=== PATIENT | male | born 1990 | race Caucasian/White ===

== ENCOUNTER 2016-12-21 23:04 | Inpatient (IN) | payer OTHER ==
[~2016-12-21] VITALS: Ht 180.3 cm; Wt 127.9 kg
[2016-12-21] MEDS ORDERED: NKM (23:12)
[2016-12-21 23:39] LABS: APPEARANCE,URINE CLEAR; KETONES,URINE NEGATIVE (NEGATIVE); LEUKOCYTE ESTERASE ,URINE NEGATIVE (NEGATIVE); NITRITE,URINE NEGATIVE (NEGATIVE); PH,URINE 6 (4.5-8.0); PROTEIN,URINE NEGATIVE (NEGATIVE); UROBILINOGEN,URINE NORMAL MG/DL (0.0-1.0)
[2016-12-22] VITALS (8 sets, daily range): BP systolic 115–146; BP diastolic 70–83
[2016-12-22 00:08] LABS: BASOPHILS % (AUTO) 1.1 % (0.0-2.0); EOSINOPHILS % (AUTO) 1.7 % (0.0-3.0); LYMPHOCYTES % (AUTO) 42.2 % (20.0-45.0); MEAN CORPUSCULAR HEMOGLOBIN 28.3 PG (27.0-31.0); MEAN CORPUSCULAR VOLUME 83 FL (80-99); MEAN PLATELET VOLUME 8.1 FL (6.5-10.1); MONOCYTES % (AUTO) 4.3 % (1.0-10.0); NEUTROPHILS % (AUTO) 50.7 % (45.0-75.0); PLATELET COUNT 232 K/UL (150-450); RED CELL DISTRIBUTION WIDTH 11.8 % (11.6-14.8); WHITE BLOOD COUNT 7.2 K/UL (4.8-10.8)
[2016-12-22 00:25] LABS: TROPONIN I < 0.30 ng/mL (<=0.30)
[2016-12-22 00:30] LABS: ALANINE AMINOTRANSFERASE 53 U/L (3-41); ALBUMIN/GLOBULIN RATIO 1.2 (1.0-2.7); ANION GAP 16 (5-15); ASPARTATE AMINO TRANSFERASE 50 U/L (5-40); CALCIUM 9.5 mg/dL (8.6-10.2); CARBON DIOXIDE 23 mEQ/L (20-30); CHLORIDE 97 mEQ/L (98-107); CREATININE 0.7 mg/dL (0.7-1.2); GLOMERULAR FILTRATION RATE > 60 mL/min (>60); HEMOLYSIS 277; SODIUM 136 mEQ/L (135-145)
[2016-12-22 00:41] LABS: CKMB < 1.5 ng/mL (< 6.7)
[2016-12-22 00:47] LABS: INR 0.9 (0.9-1.1); PROTHROMBIN TIME 9.9 SEC (9.30-11.50)
--- NOTE | 2016-12-22 02:06 | Emergency Room Report ---
History of Present Illness General Chief Complaint: Palpitations Source: Patient Present Illness HPI Patient episode of palpitations. He was walking up stairs and felt his heart going rapidly - jumping out of his chest - and almost passed out. He could hardly speak at that time. He also had significant chest pressure. It lasted approximately 10 minutes. He has never had this before. He still felt abnormal beats after the episode. He has never felt dyspnea walking up stairs. No cardiac risk factors. Rare alcohol consumption, none recently. No drugs. He stopped taking thyroid medication 2 weeks ago. This because his pharmacy did not have the medication he was supposed to take. He denies any fevers, leg swelling or nausea, vomiting, diarrhea, cough, sore throat, rashes, joint pain, headache. He believe he had ventricular tachycardia. 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[employer] Reviewed Nursing Documentation: PMH: Agreed, PSxH: Agreed Nursing Documentation-PM Past Medical History: No History, Except For Review of Systems All Other Systems: negative except mentioned in HPI Physical Exam Vital Signs Date Time Temp Pulse Resp B/P (MAP) Pulse Ox O2 Delivery O2 Flow Rate FiO2 12/21/16 23:06 98.1 87 21 141/98 98 Room Air Sp02 EP Interpretation: reviewed, normal General Appearance: well appearing, no apparent distress, GCS 15 Head: normocephalic Eyes: bilateral eye normal inspection, bilateral eye PERRL ENT: moist mucus membranes Neck: supple Respiratory: lungs clear, normal breath sounds Cardiovascular #1: regular rate, rhythm, no edema Cardiovascular #2: 2+ radial (R) Gastrointestinal: normal inspection, normal bowel sounds, non tender, no mass, non-distended, overweight Musculoskeletal: back normal, gait/station normal, normal range of motion, no calf tenderness Neurologic: alert, oriented x3, motor strength/tone normal, DTRs symmetric, sensory intact, cerebellar normal, normal gait, speech normal Psychiatric: anxious Skin: normal inspection, warm/dry Medical Decision Making Diagnostic Impression: Primary Impression: Arrhythmia Qualified Codes: I49.9 - Cardiac arrhythmia, unspecified Additional Impression: Near syncope ER Course Patient presents with rapid heart beat with near syncope. DDX: AMI, PSVT, VT, a fib, hypothyroidism, MVP, anxiety amongst others. Needs EKG, CXR, labs with troponin and thyroid eval. Patient will have cardiac monitoring. No treatment indicated at this time. Cardiac risk factors negative. Not sound like CAD, aspirin not indicated. VS and exam against PE. EKG, NSR, no acute changes. CXR normal. Labs with normal WBC, H/H, TSH, lytes except K+. Potassium initially 5.0, repeated and normal - presumed hemolysis. Improved with observation. Patient needs repeat troponins. In addition to that he needs echocardiogram and evaluation by fishing rod marker. This could be paroxysmal supraventricular tachycardia however the fact the patient nearly passed out and was quite symptomatic with chest pressure requires observation a repeat evaluation. Consider Holter or event monitor. Admit tele Dr. Dent. Laboratory Tests Test 12/21/16 23:17 12/21/16 23:45 12/22/16 01:10 Urine Color Yellow Urine Appearance Clear Urine pH 6 (4.5-8.0) Urine Specific [place] 1.015 (1.005-1.035) Urine Protein Negative (NEGATIVE) Urine Glucose (UA) Negative (NEGATIVE) Urine Ketones Negative (NEGATIVE) Urine Occult Blood Negative (NEGATIVE) Urine Nitrite Negative (NEGATIVE) Urine Bilirubin Negative (NEGATIVE) Urine Urobilinogen Normal MG/DL (0.0-1.0) Urine Leukocyte Esterase Negative (NEGATIVE) Urine Opiates Screen Negative (NEGATIVE) Urine Barbiturates Screen Negative (NEGATIVE) Phencyclidine (PCP) Screen Negative (NEGATIVE) Urine Amphetamines Screen Negative (NEGATIVE) Urine Benzodiazepines Screen Negative (NEGATIVE) Urine Cocaine Screen Negative (NEGATIVE) Urine Marijuana (THC) Screen Negative (NEGATIVE) White Blood Count 7.2 K/UL (4.8-10.8) Red Blood Count 5.10 M/UL (4.70-6.10) Hemoglobin 14.5 G/DL (14.2-18.0) Hematocrit 42.5 % (42.0-52.0) Mean Corpuscular Volume 83 FL (80-99) Mean Corpuscular Hemoglobin 28.3 PG (27.0-31.0) Mean Corpuscular Hemoglobin Concent 34.0 G/DL (32.0-36.0) Red Cell Distribution Width 11.8 % (11.6-14.8) Platelet Count 232 K/UL (150-450) Mean Platelet Volume 8.1 FL (6.5-10.1) Neutrophils (%) (Auto) 50.7 % (45.0-75.0) Lymphocytes (%) (Auto) 42.2 % (20.0-45.0) Monocytes (%) (Auto) 4.3 % (1.0-10.0) Eosinophils (%) (Auto) 1.7 % (0.0-3.0) Basophils (%) (Auto) 1.1 % (0.0-2.0) Prothrombin Time 9.9 SEC (9.30-11.50) Prothrombin Time INR 0.9 (0.9-1.1) PTT 29 SEC (23-33) D-Dimer 110 ng/mL (<500) Sodium Level 136 mEQ/L (135-145) Potassium Level 5.0 mEQ/L (3.4-4.9) H 4.7 mEQ/L (3.4-4.9) Chloride Level 97 mEQ/L (98-107) L Carbon Dioxide Level 23 mEQ/L (20-30) Anion Gap 16 (5-15) H Blood Urea Nitrogen 12 mg/dL (7-23) Creatinine 0.7 mg/dL (0.7-1.2) Estimate Glomerular Filtration Rate > 60 mL/min (>60) Glucose Level 92 mg/dL (74-106) Calcium Level 9.5 mg/dL (8.6-10.2) Total Bilirubin 0.6 mg/dL (0.0-1.2) Aspartate Amino Transferase (AST) 50 U/L (5-40) H Alanine Aminotransferase (ALT) 53 U/L (3-41) H Alkaline Phosphatase 63 U/L (40-129) Total Creatine Kinase 120 U/L (38-174) Creatine Kinase MB < 1.5 ng/mL (< 6.7) Troponin I < 0.30 ng/mL (<=0.30) Pro-B-Type Natriuretic Peptide 19 pg/mL (0-125) Total Protein 8.0 g/dL (6.6-8.7) Albumin 4.5 g/dL (3.5-5.2) Globulin 3.5 g/dL Albumin/Globulin Ratio 1.2 (1.0-2.7) Thyroid Stimulating Hormone (TSH) 2.500 uIU/mL (0.300-4.500) EKG Diagnostic Results Rate: normal Rhythm: NSR ST Segments: no acute changes Rhythm Strip Diag. Results EP Interpretation: yes Rhythm: NSR, no PVC's, no ectopy Chest X-Ray Diagnostic Results Chest X-Ray Diagnostic Results : Chest X-Ray Ordered: Yes # of Views/Limited/Complete: 1 View Indication: Other EP Interpretation: Yes Interpretation: no consolidation, no effusion, no pneumothorax, no acute cardiopulmonary disease Impression: No acute disease Electronically Signed by: Biju Barahona MD Status: improved Disposition: ADMITTED INPATIENT Condition: Serious Biju Barahona M.D. Dec 22, 2016 02:06
[2016-12-22] MEDS ORDERED: Miralax 17gm pkt ORAL PRN (04:15)
[2016-12-22] MEDS ORDERED: Morphine Sulfate 4mg/ml Inj IVP PRN (04:15)
[2016-12-22] MEDS ORDERED: Morphine Sulfate 2mg/ml Inj IVP PRN (04:15)
[2016-12-22 06:18] LABS: TROPONIN I < 0.30 ng/mL (<=0.30)
[2016-12-22] MEDS: Heparin 5000 units/ml inj SUBQ SCH ×2 (10:06→20:17)
--- NOTE | 2016-12-22 13:48 | Cardiology Report ---
APPROVED REPORT EXAM: Two-dimensional and M-mode echocardiogram with Doppler and color Doppler. INDICATION Arrhythmia M-Mode DIMENSIONS IVSd0.7 (0.7-1.1cm)Left Atrium (MM)3.9 (1.6-4.0cm) LVDd5.3 (3.5-5.6cm)Aortic Root2.8 (2.0-3.7cm) PWd1.1 (0.7-1.1cm)Aortic Cusp Exc.2.0 (1.5-2.0cm) LVDs2.9 (2.5-4.0cm) PWs1.4 cm Normal left ventricular chamber size, systolic function and wall motion. Left ventricular ejection fraction estimated to be 60%. No evidence of left ventricular hypertrophy. No evidence of pericardial effusion. All other cardiac chamber sizes are within normal limits. Normal appearing aortic, mitral, pulmonic and tricuspid valves. Mild mitral annulus and aortic root calcification. IVC at normal size with physiologic collapse. A color flow and spectral Doppler study was performed and revealed: Trace aortic regurgitation. Trace mitral regurgitation. Mitral inflow indicates normal left ventricular diastolic function. Trace tricuspid regurgitation. Tricuspid systolic velocities suggests peak right ventricular systolic pressure of 9 mmHg.
--- NOTE | 2016-12-22 16:04 | Diagnostic Imaging Report ---
Indication: Chest pain Technique: One view of the chest Comparison: none Findings: Lungs and pleural spaces are clear. Heart size is upper limits normal. Impression: No acute process
--- NOTE | 2016-12-22 16:43 | History & Physical ---
History and Physical History & Physicial H&P dictated [id number] dx: Tachycardia/palpitations concerning for arrythmia such as SVT cards consult; TTE normal; may need holter as outpatient RENZO ALAN M.D. Dec 22, 2016 16:43
--- NOTE | 2016-12-22 21:15 | History and Physical Report ---
DATE OF ADMISSION: 12/22/2016 History of Present Illness: This is a 26-year-old male with no past medical history, who presents to the hospital because of palpitations and tachycardia. He states that he was walking up the stairs yesterday and noted to have palpitations and tachycardia associated with shortness of breath and chest pain. He states he had tunnel vision, was lightheaded, felt that he was going to pass out. He states he had "out of body experience." He states that it lasted approximately 10 minutes. He denies any history of palpitations or tachycardia. He denies any chest pain or shortness of breath at this time. He states his symptoms have completely resolved. PAST MEDICAL HISTORY: Negative. Past Surgical History: The patient had 2 microdiscectomies in his lower back in 2014 and 2016. ALLERGIES: No known drug allergies. MEDICATIONS: None. Past Social History: The patient does not smoke. He does drink alcohol occasionally and does not use any drugs. Review Of Systems: A 12-point review of systems is negative except for pertinent positives as mentioned above. PHYSICAL EXAMINATION: Vital Signs: Temperature is 97.5, pulse is 70, respiratory rate of 18, blood pressure 132/75, and O2 saturation is 100% on room air. General: No acute distress. The patient is awake, alert, and oriented x3. HEENT: Normocephalic/atraumatic. NECK: Supple. No JVD. Lungs: Clear to auscultation bilaterally. No crackles, rhonchi, wheezes, or rales. CARDIOVASCULAR: Regular rate and rhythm. Normal S1 and S2. ABDOMEN: Soft, nontender, and nondistended. EXTREMITIES: No clubbing, cyanosis, or edema. SKIN: There are no rashes or jaundice. Laboratory and Diagnostic Data: CBC; white count of 7.2, hemoglobin of 14.5, and platelet count of 232. BMP; sodium 136, potassium 5, CO2 is 97, anion gap of 16, BUN is 12, and creatinine is 0.7. Troponin is less than 0.3 x2. AST and ALT are both elevated at 50 and 53 respectively. TSH is 2.5. Urine toxicology is negative. UA is negative. Echo shows EF of 60%. No evidence of LVH. No valvular abnormalities. Chest x-ray shows no acute process. EKG shows normal sinus rhythm. No ST changes. Assessment: Tachycardia, palpitations, and presyncope concerning for arrhythmia such as supraventricular tachycardia. PLAN: 1. Observation. 2. Telemetry. 3. Cardiology consult. 4. Troponin x2 is negative. 5. TTE showed no evidence of valvular disease. 6. D-dimer level is normal making PE unlikely. Biju Dent MD DR: ERIN JOB#: [id number] CC:
--- NOTE | 2016-12-22 22:43 | Cardiology Progress Note ---
Subjective Subjective [id number] Objective Last 24 Hour Vital Signs Date Time Temp Pulse Resp B/P (MAP) Pulse Ox O2 Delivery O2 Flow Rate FiO2 12/22/16 20:00 97.7 81 18 117/77 97 Room Air 12/22/16 16:00 90 12/22/16 15:46 97.9 73 18 115/77 97 Room Air 12/22/16 12:00 80 12/22/16 11:45 97.5 70 18 132/75 100 Room Air 12/22/16 08:00 97.8 83 18 123/77 98 Room Air 12/22/16 08:00 66 12/22/16 04:50 98.0 88 19 124/78 98 Room Air 12/22/16 04:45 72 21 121/72 99 Room Air 12/22/16 03:12 98.1 71 19 119/79 95 Room Air 12/22/16 01:00 98.1 84 18 146/83 95 Room Air 12/21/16 23:06 98.1 87 21 141/98 98 Room Air Intake and Output 12/22/16 12/23/16 19:00 07:00 Intake Total 840 ml Balance 840 ml Intake Oral 840 ml # Voids 4 Laboratory Tests Test 12/21/16 23:17 12/21/16 23:45 12/22/16 01:10 12/22/16 05:35 Urine Color Yellow Urine Appearance Clear Urine pH 6 (4.5-8.0) Urine Specific [place] 1.015 (1.005-1.035) Urine Protein Negative (NEGATIVE) Urine Glucose (UA) Negative (NEGATIVE) Urine Ketones Negative (NEGATIVE) Urine Occult Blood Negative (NEGATIVE) Urine Nitrite Negative (NEGATIVE) Urine Bilirubin Negative (NEGATIVE) Urine Urobilinogen Normal MG/DL (0.0-1.0) Urine Leukocyte Esterase Negative (NEGATIVE) Urine Opiates Screen Negative (NEGATIVE) Urine Barbiturates Screen Negative (NEGATIVE) Phencyclidine (PCP) Screen Negative (NEGATIVE) Urine Amphetamines Screen Negative (NEGATIVE) Urine Benzodiazepines Screen Negative (NEGATIVE) Urine Cocaine Screen Negative (NEGATIVE) Urine Marijuana (THC) Screen Negative (NEGATIVE) White Blood Count 7.2 K/UL (4.8-10.8) Red Blood Count 5.10 M/UL (4.70-6.10) Hemoglobin 14.5 G/DL (14.2-18.0) Hematocrit 42.5 % (42.0-52.0) Mean Corpuscular Volume 83 FL (80-99) Mean Corpuscular Hemoglobin 28.3 PG (27.0-31.0) Mean Corpuscular Hemoglobin Concent 34.0 G/DL (32.0-36.0) Red Cell Distribution Width 11.8 % (11.6-14.8) Platelet Count 232 K/UL (150-450) Mean Platelet Volume 8.1 FL (6.5-10.1) Neutrophils (%) (Auto) 50.7 % (45.0-75.0) Lymphocytes (%) (Auto) 42.2 % (20.0-45.0) Monocytes (%) (Auto) 4.3 % (1.0-10.0) Eosinophils (%) (Auto) 1.7 % (0.0-3.0) Basophils (%) (Auto) 1.1 % (0.0-2.0) Prothrombin Time 9.9 SEC (9.30-11.50) Prothromb Time International Ratio 0.9 (0.9-1.1) Activated Partial Thromboplast Time 29 SEC (23-33) D-Dimer 110 ng/mL (<500) Sodium Level 136 mEQ/L (135-145) Potassium Level 5.0 mEQ/L (3.4-4.9) H 4.7 mEQ/L (3.4-4.9) Chloride Level 97 mEQ/L (98-107) L Carbon Dioxide Level 23 mEQ/L (20-30) Anion Gap 16 (5-15) H Blood Urea Nitrogen 12 mg/dL (7-23) Creatinine 0.7 mg/dL (0.7-1.2) Estimat Glomerular Filtration Rate > 60 mL/min (>60) Glucose Level 92 mg/dL (74-106) Calcium Level 9.5 mg/dL (8.6-10.2) Total Bilirubin 0.6 mg/dL (0.0-1.2) Aspartate Amino Transf (AST/SGOT) 50 U/L (5-40) H Alanine Aminotransferase (ALT/SGPT) 53 U/L (3-41) H Alkaline Phosphatase 63 U/L (40-129) Total Creatine Kinase 120 U/L (38-174) Creatine Kinase MB < 1.5 ng/mL (< 6.7) Troponin I < 0.30 ng/mL (<=0.30) < 0.30 ng/mL (<=0.30) Pro-B-Type Natriuretic Peptide 19 pg/mL (0-125) Total Protein 8.0 g/dL (6.6-8.7) Albumin 4.5 g/dL (3.5-5.2) Globulin 3.5 g/dL Albumin/Globulin Ratio 1.2 (1.0-2.7) Thyroid Stimulating Hormone (TSH) 2.500 uIU/mL (0.300-4.500) SUHA REA Dec 22, 2016 22:43
[2016-12-23 04:00] VITALS: BP 124/74
[2016-12-23 07:24] LABS: BASOPHILS % (AUTO) 0.8 % (0.0-2.0); EOSINOPHILS % (AUTO) 2.1 % (0.0-3.0); LYMPHOCYTES % (AUTO) 37.8 % (20.0-45.0); MEAN CORPUSCULAR HEMOGLOBIN 28.8 PG (27.0-31.0); MEAN CORPUSCULAR HGB CONC 33.9 G/DL (32.0-36.0); MEAN CORPUSCULAR VOLUME 85 FL (80-99); MEAN PLATELET VOLUME 8.1 FL (6.5-10.1); NEUTROPHILS % (AUTO) 54.4 % (45.0-75.0); PLATELET COUNT 223 K/UL (150-450); RED BLOOD COUNT 4.69 M/UL (4.70-6.10); RED CELL DISTRIBUTION WIDTH 12.4 % (11.6-14.8); WHITE BLOOD COUNT 7.5 K/UL (4.8-10.8)
[2016-12-23 07:39] LABS: ANION GAP 12 (5-15); CALCIUM 9.4 mg/dL (8.6-10.2); CARBON DIOXIDE 25 mEQ/L (20-30); CHLORIDE 103 mEQ/L (98-107); CREATININE 0.7 mg/dL (0.7-1.2); GLOMERULAR FILTRATION RATE > 60 mL/min (>60); HEMOLYSIS 4; SODIUM 140 mEQ/L (135-145)
[2016-12-23 08:15] VITALS: BP 111/72
--- NOTE | 2016-12-23 08:17 | Consultation ---
DATE OF CONSULTATION: 12/22/2016 CARDIOLOGY CONSULTATION REFERRING PHYSICIAN: Biju Dent M.D. IDENTIFYING DATA: This is a 26-year-old gentleman. REASON FOR ADMISSION: Symptomatic palpitations with chest pain. History Of Present Illness: The patient reports that he last night was walking fast up the stairs and suddenly he felt severe palpitations, which were associated with severe dyspnea, dizziness, and tightness in his chest, which then spread up to his neck and the jaw and he was also profusely diaphoretic and that lasted for about 3-4 minutes and then gradually went away. However, the rest of the day, the patient was wiped out according to his expression. So, the patient otherwise does not have any significant cardiac history. At present time, he feels fine. PAST MEDICAL HISTORY: Also significant only for hypothyroidism. PAST SURGICAL HISTORY: Unremarkable. Medications: He is taking only Synthroid supplement and recently he stopped because he ran out for about couple of weeks and no any other medications. ALLERGIES: He denies. HABITS: No history of drinking, smoking, or drug abuse. SOCIAL HISTORY: He is employed, doing some deliveries. Family History: Negative for sudden cardiac . His coronary risk factors essentially include none. Review of Systems: Negative for any fever, chills, eating unusual food, being dehydrated, drinking alcohol yesterday, or any other abnormalities, which could explain his condition. Review of systems was done in detail and everything was negative. PHYSICAL EXAMINATION: GENERAL: This is a pleasant gentleman, not in acute distress. Vital Signs: Blood pressure 130/70, heart rate 70, oxygen saturation 97% on room air, and temperature is normal. HEENT: PERRLA. EOMI. Neck: Supple. Jugular pressure is not elevated. Carotid upstroke is preserved. LUNGS: He has no crackles, is clear. SPINE: There are no deformities. Heart: PMI is not palpable. It is regular rhythm and rate without significant murmur. ABDOMEN: Soft and nontender. Bowel sounds are present. EXTREMITIES: Lower extremity, no visible edema. NEUROLOGIC: He appears to be intact. Laboratory And Diagnostic Data: His ECG is unremarkable with a QT corrected 436. His chest x-ray also was done and it was unremarkable. An echocardiogram reviewed, it was totally normal. Impression And Recommendation: Although there was no any objective support of the patient's history including troponin, which was negative, however, his presentation is concerning of some exercise-induced tachycardia suggest either catecholaminergic polymorphic ventricular tachycardia or supraventricular tachycardia. He was very symptomatic with that. We would look at the photos and try to record this rhythm strip when he has episode if any and if he would not have any evidence of arrhythmia while he is monitored overnight, tomorrow he is going to have the stress test and we will see if that will provoke any arrhythmia. So, the stress test done is not to diagnose coronary artery disease but to induce exercise-induced tachycardia and arrhythmia. If this patient does not have recurrent symptoms when he just was on a treadmill and there is no arrhythmia induced, then we should consider ZIO patch and will try to arrange it tomorrow after the stress test. Thank you very much for your consultation. Otilia Sellers M.D. DR: STORMY JOB#: [id number] CC: NEHEMIAH
[2016-12-23] MEDS: Heparin 5000 units/ml inj SUBQ SCH (09:26)
[2016-12-23 11:33] VITALS: BP 114/64
[2016-12-23 16:00] VITALS: BP 117/74
--- NOTE | 2016-12-23 16:21 | Discharge Summary ---
Discharge Summary Hospital Course Date of Admission Dec 22, 2016 at 02:35 Date of Discharge Admitting Diagnosis arrhythmia HPI Gerald Valle is a 26 year old male who was admitted on Dec 22, 2016 at 02:35 for Arrhythmia dc summary dictated [id number] Discharge Condition Upon Discharge: stable - home Discharge Disposition Patient was discharged to Discharge Diagnoses: RENZO ALAN M.D. Dec 23, 2016 16:21
--- NOTE | 2016-12-24 10:45 | Discharge Summary ---
DATE OF ADMISSION: 12/22/2016 DATE OF DISCHARGE: 12/23/2016 Reason For Admission: Palpitations and tachycardia concerning for arrhythmia. Procedures Done Here: Exercise treadmill stress test showing no ischemia or arrhythmias. SIGNIFICANT FINDINGS: None. Brief Hospital Course And Summary: This is a 26-year-old male with no past medical history, presented to the emergency room for palpitations and tachycardia while walking and near syncope. The patient was admitted for observation on telemetry. He had no arrhythmias while here. He was seen by Cardiology and had a TTE that showed no valvular disease or structural disease. He underwent a treadmill stress test that showed no arrhythmias or ischemia. His D-dimer level was normal making pulmonary embolism unlikely. The patient's metabolic workup was also normal. He is stable for discharge and need to follow up with Cardiology as outpatient for a Zio patch. It is possible that he had exercise-induced arrhythmias such as SVT, which causes near syncope. I asked that he avoid any exertion for the time being. Discharge Instructions: Avoid exertion. Follow up with Dr. Sellers as outpatient. Follow up with myself. Needs a Zio patch in 1 to 2 weeks. Return to emergency room for chest pain. DISCHARGE DIAGNOSES: 1. Palpitations. 2. Tachycardia. 3. Near syncope concerning for stress-induced arrhythmia. Biju Dent MD DR: ERIN JOB#: [id number] CC:
--- NOTE | 2016-12-29 19:21 | Cardiology Report ---
APPROVED REPORT EKG Measurement Heart [id number] Normal sinus rhythm Normal ECG
== END 2016-12-23 17:11 | disposition home or self-care (01) | DRG 310 ==
LOC: EMR 23:59 → EDBEDREQ 12-22 02:05 → 2E 12-22 02:35 → EDBEDREQ 12-22 03:49
DX: R00.0 Tachycardia, unspecified (principal); R55 Syncope and collapse; R00.2 Palpitations; E03.9 Hypothyroidism, unspecified; Z91.14 Patient's other noncompliance with medication regimen
CPT/HCPCS: 36415; 71010; 80048; 80053; 80300; 81003; 82550; 82553; 83880; 84132; 84443; 84484; 85025; 85379; 85610; 85730; 93005; 93017; 93306; 99285